=== PATIENT | male | born 1960 | race Two or more races ===

== ENCOUNTER 2021-03-24 05:59 | Emergency (ER) | payer SELFPAY ==
[~2021-03-24] VITALS: Ht 188 cm; Wt 104.3 kg
[2021-03-24 09:04] VITALS: BP 146/87
== END 2021-03-24 09:56 | disposition home or self-care (01) ==
LOC: EDBD 05:59 → ER 05:59
DX: J06.9 Acute upper respiratory infection, unspecified (principal); Z20.822 Contact with and (suspected) exposure to COVID-19
CPT/HCPCS: 36415; 71045; 87426

== ENCOUNTER 2024-06-08 08:03 | Emergency (ER) | payer MEDICAID, OTHER ==
[~2024-06-08] VITALS: Ht 180.3 cm; Wt 90.0 kg
[2024-06-08] MEDS ORDERED: SODIUM CHLORIDE 0.9% 500 ML IV ONE (08:30)
[2024-06-08] MEDS ORDERED: ONDANSETRON HCL 4 MG/2 ML VIAL IV ONE (08:30)
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
[2024-06-08 09:03] VITALS: BP 125/76; PULSE 67; RESP 18; TEMP 97.9; O2SAT 97
[2024-06-08 10:08] LABS: COVID19 ANTIGEN SOFIA FIA NEGATIVE (NEGATIVE)
[2024-06-08 10:09] LABS: Rapid Influenza A Negative (Negative); Rapid Influenza B Negative (Negative)
--- NOTE | 2024-06-08 13:49 | ECG ---
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
[2024-06-09] MEDS ORDERED: ACET500T58 PO (22:56)
[2024-06-09] MEDS ORDERED: AZIT500T66 PO (22:56)
[2024-06-09] MEDS ORDERED: ALBU108A5 IN (22:56)
== END 2024-06-08 09:05 | disposition home or self-care (01) ==
LOC: EDBD 08:03 → ER 08:03 → EDUNIT# 08:03 → ER 09:05
DX: J06.9 Acute upper respiratory infection, unspecified (principal); B97.89 Other viral agents as the cause of diseases classified elsewhere; I44.0 Atrioventricular block, first degree; Z59.00 Homelessness unspecified; Z88.0 Allergy status to penicillin; Z20.822 Contact with and (suspected) exposure to COVID-19
CPT/HCPCS: 36415; 87426; 87804; 93005

== ENCOUNTER 2024-06-09 16:28 | Emergency (ER) | payer MEDICAID ==
[~2024-06-09] VITALS: Ht 180.3 cm; Wt 75.1 kg
--- NOTE | 2024-06-09 17:18 | ECG ---
[facility] Test Date: 2024-06-09 Test Time: 17:13:02 Pat Name: MARRY EDWARD Department: ER Room: Gender: Customer Support Analyst: ALICIA : 1960 Requested By: MARCIANO MORALES Order Number: [id number] Reading MD: Jose Novoa Measurements Intervals [place] Rate: 70 P: 79 [place]: 212 QRS: 69 QRSD: 97 T: 62 QT: 363 QTc: 392 Interpretive Statements Sinus rhythm Electronically Signed On 06-10-2024 19:19:40 PDT by Jose Novoa Please click the below link to view image of tracing.
--- NOTE | 2024-06-09 17:52 | ED.PDOC ---
History of Present Illness HPI Comments 64M presents to the ER w/ no prior Hx associated to the c/c of flu-like symptoms. Pt reports on having SOB, Lung Rodriguez and Congestion for the past 3 days. Denies chills, fever, N/V/D, CP or no other associated symptom's, modifiers, recent injuries or sick contacts at this time. Vital signs were stable on arrival Chief Complaint: Cough Time Seen by MD: 17:35 Reviewed Notes: Nurses Notes, Medications, Allergies Allergies: Uncoded Allergies: PENICILLIN (Allergy, Unknown, 06/08/24) Information Source: Patient Mode of Arrival: Ambulatory Severity: Moderate Timing: Days Duration: Since onset, Days Prehospital treatment: None Past Medical History PAST MEDICAL HISTORY: Denies Surgical History: Denies all surgeries Family History Family History: Unknown Social History Smoker: Non-Smoker Alcohol: Denies ETOH Use Drugs: Denies Drug Use Lives In: Homeless Constitutional: denies: chills, diaphoresis, fatigue, fever, malaise, sweats, weakness, others EENTM: denies: blurred vision, double vision, ear bleeding, ear discharge, ear drainage, ear pain, ear ringing, eye pain, eye redness, hearing loss, mouth pain, mouth swelling, nasal discharge, nose bleeding, nose congestion, nose pain, photophobia, tearing, throat pain, throat swelling, voice changes, others Respiratory: reports: orthopnea, shortness of breath; denies: cough, hemoptysis, SOB at rest, SOB with excertion, stridor, wheezing, others Cardiovascular: denies: chest pain, dizzy spells, diaphoresis, Dyspnea on exertion, edema, irregular heart beat, left arm pain, lightheadedness, palpit ations, PND, syncope, others Gastrointestinal: denies: abdomen distended, abdominal pain, blood streaked b owels, constipated, diarrhea, dysphagia, difficulty swallowing, hematemesis, melena, nausea, poor appetite, poor fluid intake, rectal bleeding, rectal pain, vomiting, others Genitourinary: denies: burning, dysuria, flank pain, frequency, hematuria, incontinence, penile discharge, penile sore, pain, testicle pain, testicle swelling, urgency, others Neurological: denies: dizziness, fainting, headache, left sided numbness, left sided weakness, numbness, paresthesia, pre-existing deficit, right sided numbness, right sided weakness, seizure, speech problems, tingling, tremors, weakness, others Musculoskeletal: denies: back pain, gout, joint pain, joint swelling, muscle pain, muscle stiffness, neck pain, others Integumetry: denies: bruises, change in color, change in hair/nails, dryness, laceration, lesions, lumps, rash, wounds, others Allergic/Immunocompromised: denies: Difficulty Healing, Frequent Infections, Hives, Itching, others Hematologic/Lymphatic: denies: anemia, blood clots, easy bleeding, easy bruisi ng, swollen glands, others Endocrine: denies: excessive hunger, excessive sweating, excessive thirst, exce ssive urination, flushing, intolerance to cold, intolerance to heat, unexplained weight gain, unexplained weight loss, others Psychiatric: denies: anxiety, bipolar disorder, depression, hopeless, panic disorder, schizophrenia, sleepless, suicidal, others All Other Systems: Reviewed and Negative Physical Exam Exam Comments Patient was not well kempt and dirty at evaluation. General Appearance: Mild Distress (Patient appears to be in mild distress at time of evaluation.), Normal HEENT: Normal ENT Inspection, Pharynx Normal, TMs Normal Neck: Full Range of Motion, Non-Tender, Normal, Normal Inspection Respiratory: Chest Non-Tender, No Accessory Muscle Use, No Respiratory Distress, Other ( Some rhonchi and wheezing appreciated in right middle and upper lobe. No signs of respiratory distress. No accessory muscle use.) Cardiovascular: No Edema, No JVD, No Murmur, No Gallop, Normal Peripheral Pulses, Regular Rate/Rhythm Breast Exam: Deferred Gastrointestinal: No Organomegaly, Non Tender, No Pulsatile Mass, Normal Bowel Sounds, Soft Genitalia: Deferred Pelvic: Deferred Rectal: Deferred Extremities: No calf tenderness, Normal capillary refill, Normal inspection, Normal range of motion, Non-tender, No pedal edema Musculoskeletal : Apperance: Normal Neurologic: Alert, No Motor Deficits, Normal Affect, Normal Mood, No Sensory Deficits Cerebellar Function: Normal Reflexes: Normal Skin: Dry, Normal Color, Warm Lymphatic: No Adenopathy Was a procedure done? Was a procedure done?: No Differential Dx Considerations may include: Pneumonia, viral upper respiratory illness, influenza a/ B, COVID-19 X-Ray, Labs, Meds, VS Vital Signs Date Time Temp Pulse Resp B/P (MAP) Pulse Ox O2 Delivery O2 Flow Rate FiO2 06/09/24 20:45 98.0 69 18 142/88 (106) 99 98.0 06/09/24 20:45 98.0 69 18 142/88 (106) 99 98.0 06/09/24 20:45 69 18 99 Room Air 06/09/24 17:35 97.9 72 16 117/65 (82) 99 97.9 06/09/24 17:35 16 99 Room Air* 0 21 06/09/24 17:13 70 Lab Test 06/09/24 20:40 Range/Units Influenza Type A Antigen Negative Negative Influenza Type B Antigen Negative Negative SARS-CoV-2 Antigen (Rapid) Negative NEGATIVE X-Ray, Labs, Meds, VS Comment All studies performed the ED today were evaluated by me personally. Swabs studies were unremarkable for any COVID or influenza. Chest x-ray revealed some consolidation and therefore, patient will be treated with antibiotics has a irma terial pneumonia. Advised patient to follow up with his primary care provider for discussions related to the pneumonia concerns as well as possible additional imaging studies. Time of 1ST Reevaluation: 22:54 Reevaluation 1ST: Improved Consultation: PCP Patient Education/Counseling: Diagnosis, Treatment, Prognosis Family Education/Counseling: Diagnosis, Treatment, No Family Present Departure 1 Departure Time of Disposition: 22:55 Impression: Primary Impression: Pneumonia Disposition: 01 HOME / SELF CARE / HOMELESS Condition: Stable Additional Instructions: Advised patient utilize antibiotics as directed until completion as well as additional medication as needed for symptomatic relief. Patient should practice good hydration and healthy nutrition throughout illness event. e-Prescriptions Acetaminophen (Acetaminophen) 500 Mg Tab 500 MG PO Q4HP PRN, #30 TAB Prov: JUDSON ARANGO PAC 06/09/24 Albuterol Sulfate (Albuterol Sulfate Hfa) 108 Mcg/Act Aer 108 MCG IN Q4HP PRN, #1 AER Prov: JUDSON ARANGO PAC 06/09/24 Azithromycin (Azithromycin) 500 Mg Tab 1 TAB PO DAILY for 4 Days, #4 TAB Prov: JUDSON ARANGO PAC 06/09/24 Discharged With: Self, Friend Critical Care Note Critical Care Time?: No Stability Stability form required: No Heart Score Heart Score: Heart Score Response (Comments) Value History Slightly Suspicious 0 EKG Repolarization Disturb 1 Age >65 2 Risk Factors 1 or 2 risk factors 1 Troponin N/A 0 Total 4 I personally scribed for JUDSON ARANGO PAC ([email or web address]) on 06/09/24 at 17:52. Electronically submitted by Dima Moore ([email or web address]). JUDSON ARANGO PAC Jun 09, 2024 17:52
--- NOTE | 2024-06-09 17:53 | DVH ---
CHEST RADIOGRAPH Indication: Cough Technique: Single frontal view of the chest was obtained Comparison: CHEST XRAY 1 VIEW on DOS: 03/24/21 FINDINGS: There is a possible infiltrate or atelectasis involving the right middle lobe otherwise lungs are wel l expanded clear. Patient has a significant dextrocurvature involving the thoracic spine. IMPRESSION: 1. Atelectasis or infiltrate involving the right middle lobe I would recommend follow-up CT examinati on chest 1.
[2024-06-09 22:40] LABS: COVID19 ANTIGEN SOFIA FIA NEGATIVE (NEGATIVE); Rapid Influenza A Negative (Negative); Rapid Influenza B Negative (Negative)
[2024-06-09] MEDS ORDERED: ALBU108A5 IN (22:56)
[2024-06-09] MEDS ORDERED: ACET500T58 PO (22:56)
[2024-06-09] MEDS ORDERED: AZIT500T66 PO (22:56)
[2024-06-09] MEDS: AZITHROMYCIN 250 MG TAB PO ONE (23:44)
[2024-06-09 23:46] VITALS: BP 136/77; PULSE 64; RESP 17; TEMP 98.1; O2SAT 100
== END 2024-06-09 23:54 | disposition home or self-care (01) ==
LOC: ER 16:28
DX: J18.9 Pneumonia, unspecified organism (principal); Z88.0 Allergy status to penicillin; Z59.00 Homelessness unspecified; Z20.822 Contact with and (suspected) exposure to COVID-19
CPT/HCPCS: 36415; 71045; 87426; 87804; 93005

== ENCOUNTER 2024-10-11 12:23 | Emergency (ER) | payer MEDICARE, MEDICAID ==
[~2024-10-11] VITALS: Ht 180.3 cm; Wt 77.9 kg
[~2024-10-11 12:23] MED LIST: ACET500T58 PO; ALBU108A5 IN; AZIT500T66 PO
--- NOTE | 2024-10-11 12:56 | ED.PDOC ---
Musculoskeletal HPI Comments 64 y/o M, presents to the ED for CC of right hand pain. Patient states, he has been experiencing locking of the 3rd phalanx C/o pain with extension Pain started 4-5 days ago Patient reports, that recently his right third digit fingernail fell off and is unsure, if symptoms may be related. Pain rated moderate Terapies tried: none Patient denies taruma, injury, or fall. No other symptoms or modifiers present at this time. Denies fevers chills Chief Complaint: Upper Extremity Time Seen by MD: 13:00 Primary Care Provider: VIOLA Reviewed Notes: Nurses Notes, Medications, Allergies Allergies: Coded Allergies: Penicillins (Verified Allergy, Unknown, 10/11/24) Uncoded Allergies: PENICILLIN (Allergy, Unknown, 06/08/24) Home Meds Active Scripts Prednisone (Prednisone) 20 Mg Tab, 60 MG PO DAILY for 5 Days, #15 TAB 0 Refills Prov:DIPTI CRUZ SOFTBALL WINDER 10/11/24 Ibuprofen Micronized (Ibuprofen) 800 Mg Tab, 800 MG PO TID for 10 Days, #30 TAB 0 Refills Prov:DIPTI CRUZ SOFTBALL WINDER 10/11/24 Acetaminophen (Acetaminophen) 500 Mg Tab, 500 MG PO Q4HP PRN, #30 TAB Prov:JUDSON ARANGO PAC 06/09/24 Albuterol Sulfate (Albuterol Sulfate Hfa) 108 Mcg/Act Aer, 108 MCG IN Q4HP PRN, #1 AER Prov:JUDSON ARANGO PAC 06/09/24 Azithromycin (Azithromycin) 500 Mg Tab, 1 TAB PO DAILY for 4 Days, #4 TAB Prov:JUDSON ARANGO PAC 06/09/24 Information Source: Patient Mode of Arrival: Ambulatory Location: Right Extremity Location: Hand Timing: Days Prehospital treatment: None Severity: Moderate Able to Move Extremity: No Pain: Moderate Mechanism: Spontaneous Circumstances: Spontaneous Onset of Symptoms: Spontaneous Symptoms: Pain DVT Risk Factors: NONE Last Tetanus: Unknown Associated signs and symptoms: Other (right hand pain) Past Medical History PAST MEDICAL HISTORY: Denies Surgical History: Denies all surgeries Family History Family History: Unknown Social History Smoker: Non-Smoker Alcohol: Denies ETOH Use Drugs: Denies Drug Use Lives In: Homeless Constitutional: denies: chills, diaphoresis, fatigue, fever, malaise, sweats, weakness, others EENTM: denies: blurred vision, double vision, ear bleeding, ear discharge, ear drainage, ear pain, ear ringing, eye pain, eye redness, hearing loss, mouth pain , mouth swelling, nasal discharge, nose bleeding, nose congestion, nose pain, photophobia, tearing, throat pain, throat swelling, voice changes, others Respiratory: denies: cough, hemoptysis, orthopnea, SOB at rest, shortness of breath, SOB with excertion, stridor, wheezing, others Cardiovascular: denies: chest pain, dizzy spells, diaphoresis, Dyspnea on exertion, edema, irregular heart beat, left arm pain, lightheadedness, palpitations, PND, syncope, others Gastrointestinal: denies: abdomen distended, abdominal pain, blood streaked bowels, constipated, diarrhea, dysphagia, difficulty swallowing, hematemesis, melena, nausea, poor appetite, poor fluid intake, rectal bleeding, rectal pain, vomiting, others Genitourinary: denies: burning, dysuria, flank pain, frequency, hematuria, incontinence, penile discharge, penile sore, pain, testicle pain, testicle swelling, urgency, others Neurological: denies: dizziness, fainting, headache, left sided numbness, left sided weakness, numbness, paresthesia, pre-existing deficit, right sided numbness, right sided weakness, seizure, speech problems, tingling, tremors, weakness, others Musculoskeletal: reports: others (right hand pain); denies: back pain, gout, joint pain, joint swelling, muscle pain, muscle stiffness, neck pain Integumetry: denies: bruises, change in color, change in hair/nails, dryness, l aceration, lesions, lumps, rash, wounds, others Allergic/Immunocompromised: denies: Difficulty Healing, Frequent Infections, Hives, Itching, others Hematologic/Lymphatic: denies: anemia, blood clots, easy bleeding, easy bruising, swollen glands, others Endocrine: denies: excessive hunger, excessive sweating, excessive thirst, excessive urination, flushing, intolerance to cold, intolerance to heat, unexplained weight gain, unexplained weight loss, others Psychiatric: denies: anxiety, bipolar disorder, depression, hopeless, panic disorder, schizophrenia, sleepless, suicidal, others All Other Systems: Reviewed and Negative Physical Exam General Appearance: No Apparent Distress, Normal HEENT: Normal ENT Inspection, Pharynx Normal, TMs Normal Neck: Full Range of Motion, Non-Tender, Normal, Normal Inspection Respiratory: Chest Non-Tender, Lungs Clear, No Accessory Muscle Use, No Respiratory Distress, Normal Breath Sounds Cardiovascular: No Edema, No JVD, No Murmur, No Gallop, Normal Peripheral Pulses, Regular Rate/Rhythm Breast Exam: Deferred Gastrointestinal: No Organomegaly, Non Tender, No Pulsatile Mass, Normal Bowel Sounds, Soft Genitalia: Deferred Pelvic: Deferred Rectal: Deferred Extremities: No calf tenderness, Normal capillary refill, Normal inspection, Normal range of motion, Non-tender, No pedal edema Musculoskeletal : Location: Left Extremity Location: Finger 3 (No gross abnormality on inspection. Locking of the 3rd finger. Localized TTP to the A1 babar of the 3rd phalanx. No surrounding erythema. No discharge. Cap refill less than 3 seconds and neurovascular sensation is intact) Apperance: Normal Neurologic: Alert, system auditor II-XII nml as Tested, No Motor Deficits, Normal Affect, Normal Mood, No Sensory Deficits Cerebellar Function: Normal Reflexes: Normal Skin: Dry, Normal Color, Warm Lymphatic: No Adenopathy Was a procedure done? Was a procedure done?: No Differential Diagnosis EXT Differential Diagnosis: Gout, DJD, Arthritis X-Ray, Labs, Meds, VS Vital Signs Date Time Temp Pulse Resp B/P (MAP) Pulse Ox O2 Delivery O2 Flow Rate FiO2 10/11/24 14:32 98.1 72 18 148/69 (95) 95 98.1 10/11/24 14:32 72 18 95 Room Air* 0 21 10/11/24 12:32 97.7 67 18 138/79 (98) [address] [address] Ph: [phone] DIAGNOSTIC IMAGING Diagnostic Imaging Report : [id number] Signed PATIENT: ROSHAN EDWARDT: [id number] UNIT: [id number] : 1960 LOC: ER ROOM / BED: / AGE / SEX: 64 / M ADM STATUS: REG ER SERVICE 1342 ORDERING PHYSICIAN: DIPTI CRUZ NP PROCEDURE(s): RHAN - R HAND 3 VIEW XRAY REASON: r/o fracture of the 3rd phalanx ORDER NUMBER(s): [id number], ACCESSION NUMBER(s): [id number] CLINICAL INDICATION: r/o fracture of the 3rd phalanx TECHNIQUE: 3 radiographic views of the and were obtained. Comparison: None FINDINGS/IMPRESSION: Flexure right 3rd digit at the proximal interphalangeal joint not well evaluated. This may represent contracture. Can not exclude fracture. ATED BY: ERIC NUÑEZ Jr., DO DICTATED DATE/TIME: 10/11/241429 SIGNED BY: ERIC NUÑEZ Jr., SIGNED DATE/TIME: 10/11/241429 CC: X-Ray, Labs, Meds, VS Comment 64 y/o M, presents to the ED for CC of right hand pain. Patient states, he has been experiencing locking of the 3rd phalanx Patient arrives alert and oriented, ABC's intact, afebrile, vital signs stable, saturating well in room air The ROS physical examination there were no red flags. Findings are consistent with a trigger finger. Kenalog ordered however medication is on back stuck at this time therefore procedure was deferred during this visit Based on show decision-making patient agreed to a trial of anti-inflammatories and a short course of steroids for the symptoms noted above. Patient was advised to follow up with his PCP for further evaluation. May benefit from a hand surgeon evaluation of the symptoms persist or worsen Patient is stable for discharge at this time. External notes reviewed. Test results and diagnostic imaging interpreted. All diagnostic findings, discharge care, education and instructions provided Follow-up with PCP in 2 to 3 days Patient verbalized understanding and agreed to treatment plan Vital signs stable, afebrile, no acute distress noted Patient ambulatory with strong steady gait Advised to return precautions for any new or worsening symptoms, return to ER immediately for re-evaluation Patient is aware that the purpose of this visit was for an acute medical emergency requiring emergent stabilization. Chronic conditions, including malignancies have not been ruled out. Patient is instructed to follow up with PCP as directed and discharge instructions for continued care and workup. If unable to arrange follow-up, patient is to return to the emergency department for reassessment. Patient (parent or legal guardian if applicable) was given verbal and written discharge instructions and acknowledges understanding. Diagnostic imaging ordered by me and results interpreted by radiology : RIGHT HAND XY Additional MDM Review of External, Non-ED records: External records reviewed. Discussion with independent historian (EMS, family) history obtained from the patient/parents (if applicable) at bedside Chronic conditions affecting care: None Social determinants of health affecting care: None Consideration of admission (observation or admission): I considered escalation of care to admission for this patient, however given the reassuring workup, the patient is safe for outpatient management. Discussion with the Radiology: No Tests considered but not performed: Prescription medication considered but not given: Time of 1ST Reevaluation: 13:30 Reevaluation 1ST: Unchanged Patient Education/Counseling: Diagnosis, Treatment Family Education/Counseling: No Family Present Departure 1 Departure Time of Disposition: 15:04 Impression: Primary Impression: Trigger finger Qualified Codes: M65.331 - Trigger finger, right middle finger Disposition: HOME / SELF CARE / HOMELESS Condition: Fair e-Prescriptions Prednisone (Prednisone) 20 Mg Tab 60 MG PO DAILY for 5 Days, #15 TAB 0 Refills Prov: DIPTI CRUZ SOFTBALL WINDER 10/11/24 Ibuprofen Micronized (Ibuprofen) 800 Mg Tab 800 MG PO TID for 10 Days, #30 TAB 0 Refills Prov: DIPTI CRUZ SOFTBALL WINDER 10/11/24 Critical Care Note Critical Care Time?: No Stability Stability form required: No Heart Score Heart Score: Heart Score Response (Comments) Value History N/A 0 EKG N/A 0 Age N/A 0 Risk Factors N/A 0 Troponin N/A 0 Total 0 I personally scribed for DIPTI CRUZ SOFTBALL WINDER ([email or web address]) on 10/11/24 at 12:56. Electronically submitted by Marisa Freeman ([email or web address]). I personally scribed for DIPTI CRUZ SOFTBALL WINDER ([email or web address]) on 10/11/24 at 13:12. Electronically submitted by Marisa Freeman ([email or web address]). I personally scribed for DIPTI CRUZ SOFTBALL WINDER ([email or web address]) on 10/11/24 at 13:13. Electronically submitted by Marisa Freeman ([email or web address]). I personally scribed for DIPTI CRUZ SOFTBALL WINDER ([email or web address]) on 10/11/24 at 13:21. Electronically submitted by Marisa Freeman ([email or web address]). I personally scribed for DIPTI CRUZ NP ([email or web address]) on 10/11/24 at 14:50. Electronically submitted by Marisa Freeman [email or web address]). DIPTI CRUZ NP Oct 11, 2024 12:56
[2024-10-11] MEDS: TRIAMCINOLONE 40MG/ML 1ML VIAL IX ONE (14:30)
[2024-10-11 14:32] VITALS: BP 148/69; PULSE 72; RESP 18; TEMP 98.1; O2SAT 95
--- NOTE | 2024-10-11 14:32 | DVH ---
CLINICAL INDICATION: r/o fracture of the 3rd phalanx TECHNIQUE: 3 radiographic views of the and were obtained. Comparison: None FINDINGS/IMPRESSION: Flexure right 3rd digit at the proximal interphalangeal joint not well evaluated. This may represent contracture. Can not exclude fracture.
[2024-10-11] MEDS ORDERED: PRED20TA2 PO (15:04)
[2024-10-11] MEDS ORDERED: IBUP-1455 PO (15:04)
== END 2024-10-11 15:14 | disposition home or self-care (01) ==
LOC: ER 12:23
DX: M65.331 Trigger finger, right middle finger (principal); Z59.00 Homelessness unspecified; Z88.0 Allergy status to penicillin
CPT/HCPCS: 73130